=== PATIENT | female | born 1970 | race Caucasian/White ===

== ENCOUNTER 2016-06-02 09:12 | Emergency (ER) | payer OTHER ==
[2016-06-02 09:44] VITALS: BP 139/74
--- NOTE | 2016-06-02 09:55 | UC ---
Cardiac HPI - HPI Summary HPI Summary: Patient has MS, is followed by the [facility]. 2 days ago she started feeling left sided pain, thought it was a tylical MS romero, but has not resolved with typical baclofen, now has pain and tingling down left arm. Denies any palpitations or SOB. sitting comfortably in chair. - History of Current Complaint Chief Complaint: UCGeneralIllness Stated Complaint: MS ROMERO Time Seen by Provider: 06/02/16 09:39 Hx Obtained From: Patient Onset/Duration: Sudden Onset, Lasting Days Timing: Constant Initial Severity: Moderate Current Severity: Severe Chest Pain Location: Left Anterior, Left Lateral Character: Tightness, Pressure/Squeezing Aggravating: Position Alleviating: Nothing Associated Signs & Symptoms: Positive: Chest Pain, Numbness, Tingling, Weakness - Risk Factors Pulmonary Embolism Risk Factors: Negative Cardiac Risk Factors: Negative Atrial Fibrillation: Negative TAD Risk Factors: Negative - Allergy/Home Medications Allergies/Adverse Reactions: Allergies Allergy/AdvReac Type Severity Reaction Status Date / Time Oxycodone [From Percocet] Allergy Hives Verified 06/02/16 09:33 Home Medications: Home Medications predniSONE TAB* [Deltasone TAB*] 20 mg PO DAILY 06/02/16 [History Confirmed ] PMH/Surg Hx/FS Hx/Imm Hx Previously Healthy: Yes Endocrine History Of: Denies: Diabetes Cardiovascular History Of: Reports: Cardiac Disorders - palpitations Denies: Hypertension, Pacemaker/ICD Respiratory History Of: Denies: Asthma GI/ History Of: Denies: Renal Disease - Surgical History Surgical History: Yes Surgery Procedure, Year, and Place: , 1989, [facility] - Family History Known Family History: Positive: Hypertension - Social History Alcohol Use: None Substance Use Type: None Smoking Status (MU): Never Smoked Tobacco - Immunization History Most Recent Influenza Vaccination: 2013 Most Recent Tetanus Shot: 2011 Most Recent Pneumonia Vaccination: never Review of Systems Constitutional: Negative Skin: Negative Eyes: Negative ENT: Negative Respiratory: Negative Cardiovascular: Chest Pain - left ant. Gastrointestinal: Negative Genitourinary: Negative Motor: Negative Neurovascular: Negative Musculoskeletal: Arthralgia, Myalgia Neurological: Negative Psychological: Negative All Other Systems Reviewed And Are Negative: Yes Physical Exam Triage Information Reviewed: Yes Appearance: Well-Appearing, Pain Distress, Obese Vital Signs: Initial Vital Signs Temp 97.5 F 06/02/16 09:24 Pulse 100 06/02/16 09:24 Resp 16 06/02/16 09:24 BP 139/74 06/02/16 09:24 Pulse Ox 98 06/02/16 09:24 Vital Signs Reviewed: Yes Eye Exam: Normal Eyes: Positive: Conjunctiva Clear ENT Exam: Normal ENT: Positive: Hearing grossly normal, Pharynx normal, TMs normal Dental Exam: Normal Neck exam: Normal Neck: Positive: Supple, Nontender, No Lymphadenopathy Respiratory Exam: Normal Respiratory: Positive: Chest non-tender, Lungs clear, Normal breath sounds Cardiovascular Exam: Normal Cardiovascular: Positive: RRR, No Murmur, Pulses Normal Abdominal Exam: Normal Abdomen Description: Positive: Nontender, No Organomegaly, Soft Bowel Sounds: Positive: Present Musculoskeletal Exam: Normal Musculoskeletal: Positive: Strength Intact, ROM Intact, No Edema, Other: - hypertonicity of left maycol back and shoulder musculature noted Neurological: Positive: Alert Psychological Exam: Normal Skin Exam: Normal - Assessment/Plan Course Of Treatment: History obtained, exam performed, meds reviewed. EKG obtained no change from the last EKG, reviewed by Dr Steven. patient relieved will continue with normal treatment for MS Hug and follow up with her MD at [facility]. - Differential Diagnoses - Chest Pain Differential Diagnosis/HQI/PQRI: Acute KS, ACS, Angina, Chest Wall - Differential Diagnoses - Hypertension Differential Diagnosis/HQI PQRI: Other - MS exacerbation MS HUG - Clinical Impression Provider Diagnoses: Multiple Sclerosis. muscle spasm Discharge - Discharge Plan Condition: Stable Disposition: HOME Patient Education Materials: Chest Pain (ED) Forms: *Work Release Additional Instructions: Take the baclofen as prescribed. Follow up with your [id number] if your symptoms persist or not well controlled with current treatment. Your EKG was normal and unchanged from your last EKG.
== END 2016-06-02 10:21 | disposition home or self-care (01) ==
LOC: UCCORT 09:12
DX: G35 Multiple sclerosis (principal); M62.838 Other muscle spasm; R20.2 Paresthesia of skin; R07.89 Other chest pain; Z88.5 Allergy status to narcotic agent
CPT/HCPCS: 93005; 99211; G0463

== ENCOUNTER 2016-11-10 11:37 | Emergency (ER) | payer OTHER ==
[2016-11-10 11:56] VITALS: BP 129/79
--- NOTE | 2016-11-10 12:19 | UC ---
Skin Complaint HPI - HPI Summary HPI Summary: right side pain x 2 day ? shingles, Hx of shingles x 2 in the past, no rash noted yet, no fever, no chills, - History of Current Complaint Chief Complaint: UCSkin Time Seen by Provider: 11/10/16 11:38 Stated Complaint: SKIN COMPLAINT Hx Obtained From: Patient Hx Last Menstrual Period: 10/31/16 ?: No Onset/Duration: Gradual Onset, Lasting Days - 2, Still Present Timing: Constant Onset Severity: Moderate Current Severity: Moderate Pain Intensity: 5 Pain Scale Used: 0-10 Numeric Location: Other - right side of her trunk Character: Pain, Painful Aggravating: Clothing, Touch Alleviating: Nothing Associated Signs & Symptoms: Positive: Tenderness Similar Episode/Dx as: shingles x 2 - Allergy/Home Medications Allergies/Adverse Reactions: Allergies Allergy/AdvReac Type Severity Reaction Status Date / Time Oxycodone [From Percocet] Allergy Hives Verified 11/10/16 11:48 Home Medications: Home Medications Baclofen TAB* [Lioresal TAB*] 10 mg PO TID PRN 11/10/16 [History Confirmed 11/10] Review of Systems Constitutional: Negative Skin: Negative Eyes: Negative ENT: Negative Respiratory: Negative Cardiovascular: Negative Psychological: Negative All Other Systems Reviewed And Are Negative: Yes PMH/Surg Hx/FS Hx/Imm Hx Previously Healthy: Yes Neurological History: Other - MS Other Neurological History: MS - Surgical History Surgical History: Yes Surgery Procedure, Year, and Place: , 1989, [facility] - Family History Known Family History: Positive: Hypertension - Social History Alcohol Use: None Substance Use Type: Prescribed Smoking Status (MU): Never Smoked Tobacco - Immunization History Most Recent Influenza Vaccination: 2012 Most Recent Tetanus Shot: 2011 Most Recent Pneumonia Vaccination: never Physical Exam Triage Information Reviewed: Yes Appearance: Well-Appearing, No Pain Distress, Well-Nourished Vital Signs: Initial Vital Signs Temp 98.5 F 11/10/16 11:50 Pulse 76 11/10/16 11:50 Resp 16 11/10/16 11:50 BP 129/79 11/10/16 11:50 Pulse Ox 100 11/10/16 11:50 Eye Exam: Normal Eyes: Positive: Conjunctiva Clear ENT: Positive: Normal ENT inspection, Hearing grossly normal, Pharynx normal Neck exam: Normal Neck: Positive: Supple, Nontender, No Lymphadenopathy Respiratory: Positive: Chest non-tender, Lungs clear, Normal breath sounds Cardiovascular: Positive: RRR, No Murmur, Pulses Normal Skin: Positive: Other - no rash seen. Negative: rashes Course/Dx - Diagnoses Provider Diagnoses: shingles Discharge - Discharge Plan Condition: Stable Disposition: HOME Prescriptions: ValACYclovir (*) [Valtrex 1 GM(*)] 1 gm PO TID #21 tab Patient Education Materials: Shingles (ED) Forms: *Work Release Referrals: Anjelica Real PA [Primary Care Provider] - 7 Days
== END 2016-11-10 12:06 | disposition home or self-care (01) ==
LOC: UCCORT 11:37
DX: B02.9 Zoster without complications (principal)
CPT/HCPCS: 99212; G0463

== ENCOUNTER 2017-04-29 07:19 | Emergency (ER) | payer OTHER ==
[2017-04-29 08:00] VITALS: BP 122/73
[2017-04-29] MEDS ORDERED: Acetaminophen TAB* 325 MG PO ONE (08:32)
--- NOTE | 2017-04-29 08:50 | UC ---
Throat Pain/Nasal John Paul HPI - HPI Summary HPI Summary: 46 year old female wih history of MS presents with sore throat for 1 day and concern for strep/ no fever. - History of Current Complaint Chief Complaint: UCRespiratory Stated Complaint: SORE THROAT Time Seen by Provider: 04/29/17 08:00 Hx Last Menstrual Period: 04/16 Pain Intensity: 7 - Allergies/Home Medications Allergies/Adverse Reactions: Allergies Allergy/AdvReac Type Severity Reaction Status Date / Time acetaminophen [From Percocet] Allergy Hives Verified 04/29/17 07:50 oxycodone [From Percocet] Allergy Hives Verified 04/29/17 07:50 Home Medications: Home Medications Duloxetine HCl 60 mg PO DAILY 04/29/17 [History Confirmed 04/29/17] Ibuprofen TAB* [Motrin TAB* 400 MG] 400 mg PO ONCE PRN 04/29/17 [History Confirmed 04/29/17] PMH/Surg Hx/FS Hx/Imm Hx Previously Healthy: Yes - MS - Surgical History Surgical History: Yes Surgery Procedure, Year, and Place: , 1989, [facility] - Family History Known Family History: Positive: Hypertension - Social History Occupation: Employed Full-time - [employer] Alcohol Use: None Substance Use Type: Prescribed Smoking Status (MU): Never Smoked Tobacco - Immunization History Most Recent Influenza Vaccination: 2012 Most Recent Tetanus Shot: 2011 Most Recent Pneumonia Vaccination: never Review of Systems ENT: Sore Throat Is Patient Immunocompromised?: No All Other Systems Reviewed And Are Negative: Yes Physical Exam Triage Information Reviewed: Yes Appearance: Well-Appearing, No Pain Distress, Well-Nourished Vital Signs: Initial Vital Signs Temp 98.1 F 04/29/17 07:54 Pulse 84 04/29/17 07:54 Resp 18 04/29/17 07:54 BP 122/73 04/29/17 07:54 Pulse Ox 98 04/29/17 07:54 Vital Signs Reviewed: Yes Eye Exam: Normal ENT Exam: Normal ENT: Positive: Pharyngeal erythema. Negative: Tonsillar swelling, Tonsillar exudate Dental Exam: Normal Neck exam: Normal Neck: Positive: 1 Respiratory Exam: Normal Cardiovascular Exam: Normal Musculoskeletal Exam: Normal Neurological Exam: Normal Psychological Exam: Normal Skin Exam: Normal Throat Pain/Nasal Course/Dx - Differential Dx/Diagnosis Differential Diagnosis/HQI/PQRI: Mononucleosis, Pharyngitis, Tonsillitis Provider Diagnoses: viral pharyngitis Discharge - Discharge Plan Condition: Good Disposition: HOME Prescriptions: Magic Mouth Was-ROS/MAAL/LIDO* 5 ml SWISH SPIT QID PRN #120 ml PRN Reason: Pain Patient Education Materials: Pharyngitis (ED) Forms: *Work Release Referrals: Anjelica Real PA [Primary Care Provider] - 4 Days Additional Instructions: You had a negative strep test today
== END 2017-04-29 09:14 | disposition home or self-care (01) ==
LOC: UCCORT 07:19
DX: J02.9 Acute pharyngitis, unspecified (principal)
CPT/HCPCS: 87651; 99212; A9270-GY; G0463

== ENCOUNTER 2017-05-02 11:04 | Emergency (ER) | payer OTHER ==
[2017-05-02 13:17] VITALS: BP 109/64
--- NOTE | 2017-05-02 13:49 | UC ---
Throat Pain/Nasal John Paul HPI - HPI Summary HPI Summary: history of MS, on Tecfidera (she does not know her white count), with 4 days of progressive sore throat, now with headache and left facial pain. + cough, no chills or rigors. - History of Current Complaint Chief Complaint: UCRespiratory Stated Complaint: RE-CHECK ST/EAR/SINUS Time Seen by Provider: 05/02/17 13:37 Hx Obtained From: Patient Hx Last Menstrual Period: 04/16 Onset/Duration: Gradual Onset, Lasting Days - 5 Pain Intensity: 6 Cough: Nonproductive Associated Signs & Symptoms: Positive: Sinus Discomfort, Nasal Discharge - Allergies/Home Medications Allergies/Adverse Reactions: Allergies Allergy/AdvReac Type Severity Reaction Status Date / Time acetaminophen [From Percocet] Allergy Hives Verified 05/02/17 13:08 oxycodone [From Percocet] Allergy Hives Verified 05/02/17 13:08 PMH/Surg Hx/FS Hx/Imm Hx - Additional Past Medical History Additional PMH: Multiple sclerosus, on Tecfidera. Uses Lyrica for chronic leg pain. Neurological History: Other - Multiple sclerosus Other Neurological History: multiple sclerosus - Surgical History Surgical History: Yes Surgery Procedure, Year, and Place: , 1989, [facility] - Family History Known Family History: Positive: Other - longevity in family. Grandparents living , all well. - Social History Occupation: Employed Full-time Lives: With Family Alcohol Use: None Substance Use Type: Prescribed Smoking Status (MU): Never Smoked Tobacco - Immunization History Most Recent Influenza Vaccination: 2012 Most Recent Tetanus Shot: 2011 Most Recent Pneumonia Vaccination: never Review of Systems Constitutional: Fever, Fatigue Skin: Negative Eyes: Negative ENT: Sore Throat, Ear Ache - left Respiratory: Cough Cardiovascular: Negative Gastrointestinal: Negative Genitourinary: Negative Motor: Negative Neurovascular: Negative Musculoskeletal: Myalgia - chronic, related to MS Neurological: Headache Psychological: Negative Is Patient Immunocompromised?: Yes - on Tecfidera, uncertain of WBC All Other Systems Reviewed And Are Negative: Yes Physical Exam Triage Information Reviewed: Yes Appearance: Ill-Appearing - looks mildly unwell., Obese Vital Signs: Initial Vital Signs Temp 98.3 F 05/02/17 13:11 Pulse 84 05/02/17 13:11 Resp 18 02/25/18 13:11 BP 109/64 05/02/17 13:11 Pulse Ox 96 05/02/17 13:11 Eyes: Positive: Conjunctiva Clear ENT: Positive: Pharyngeal erythema - posterior drainage and erythema, Other - + percussive tenderness right maxillary and frontal sinus Neck: Positive: Supple, Nontender, No Lymphadenopathy Respiratory: Positive: Lungs clear, Normal breath sounds Cardiovascular: Positive: RRR, No Murmur Skin Exam: Normal Throat Pain/Nasal Course/Dx - Course Course Of Treatment: augmentin for sinusitis. - Differential Dx/Diagnosis Differential Diagnosis/HQI/PQRI: Influenza, Laryngitis, Otitis Media, Tonsillitis Provider Diagnoses: acute left maxillary and frontal sinusitis. Discharge - Discharge Plan Condition: Stable Disposition: HOME Prescriptions: Amoxicillin/Clavulanate TAB* [Augmentin TAB 875*] 875 mg PO BID #20 tab Patient Education Materials: Sinusitis (ED) Referrals: Anjelica Real PA [Primary Care Provider] - Additional Instructions: Take augmentin for sinusitis. You can use flonase spray for relief of sinus congestion. Folow up if fever persists or your develop shortness of breath.
== END 2017-05-02 14:07 | disposition home or self-care (01) ==
LOC: UCCORT 11:04
DX: J01.10 Acute frontal sinusitis, unspecified (principal); J01.00 Acute maxillary sinusitis, unspecified; G35 Multiple sclerosis
CPT/HCPCS: 99212; G0463

== ENCOUNTER 2017-05-30 08:53 | Emergency (ER) | payer OTHER ==
[2017-05-30 09:25] VITALS: BP 108/70
--- NOTE | 2017-05-30 10:05 | UC ---
Ear Complaint HPI - HPI Summary HPI Summary: right ear pain x hours no URI - History of Current Complaint Chief Complaint: UCEar Stated Complaint: EAR PAIN Time Seen by Provider: 05/30/17 09:38 Hx Obtained From: Patient Hx Last Menstrual Period: 04/16/17 Onset/Duration: Gradual Onset, Lasting Hours Severity Initially: Moderate Severity Currently: Mild Pain Intensity: 3 Pain Scale Used: 0-10 Numeric Associated Signs/Symptoms: Positive: Hearing Loss Related History: Prior ENT Surgery, T & A - Allergies/Home Medications Allergies/Adverse Reactions: Allergies Allergy/AdvReac Type Severity Reaction Status Date / Time acetaminophen [From Percocet] Allergy Hives Verified 05/02/17 13:08 oxycodone [From Percocet] Allergy Hives Verified 05/02/17 13:08 PMH/Surg Hx/FS Hx/Imm Hx Previously Healthy: Yes - Surgical History Surgical History: Yes Surgery Procedure, Year, and Place: , 1989, [facility] - Family History Known Family History: Positive: Hypertension, Other - longevity in family. Grandparents living, all well. - Social History Alcohol Use: None Substance Use Type: None Smoking Status (MU): Never Smoked Tobacco - Immunization History Most Recent Influenza Vaccination: 2012 Most Recent Tetanus Shot: 2011 Most Recent Pneumonia Vaccination: never Review of Systems Constitutional: Negative Skin: Negative Eyes: Negative ENT: Ear Ache Respiratory: Negative Cardiovascular: Negative Gastrointestinal: Negative Genitourinary: Negative Motor: Negative Neurovascular: Negative Musculoskeletal: Negative Neurological: Negative Psychological: Negative Is Patient Immunocompromised?: No All Other Systems Reviewed And Are Negative: Yes Physical Exam Triage Information Reviewed: Yes Vital Signs: Initial Vital Signs Temp 98.4 F 05/30/17 09:18 Pulse 86 05/30/17 09:18 Resp 16 05/30/17 09:18 BP 108/70 05/30/17 09:18 Pulse Ox 98 05/30/17 09:18 Eye Exam: Normal ENT: Positive: Uvula midline. Negative: Hearing grossly normal, TMs normal - unable to vis right TM due to cerumen, Tonsillar swelling, Tonsillar exudate, Hoarse voice, Dental tenderness, Sinus tenderness Neck: Positive: Supple, Nontender, No Lymphadenopathy Respiratory: Positive: Lungs clear, Normal breath sounds, No respiratory distress Cardiovascular: Positive: RRR, No Murmur Neurological: Positive: Alert Psychological Exam: Normal Skin Exam: Normal Re-Evaluation - Re-Evaluation First Eval Re-Evaluation Time: 10:03 Change: Improved - right TM normal Ear Complaint Course/Dx - Differential Dx/Diagnosis Provider Diagnoses: right cerumen impaction Discharge - Sign-Out/Discharge Documenting (check all that apply): Discharge - Discharge Plan Condition: Stable Disposition: HOME Patient Education Materials: Cerumen Impaction (ED) Referrals: Anjelica Real PA [Primary Care Provider] - If Needed - Billing Disposition and Condition Condition: STABLE Disposition: HOME
== END 2017-05-30 10:12 | disposition home or self-care (01) ==
LOC: UCCORT 08:53
DX: H61.21 Impacted cerumen, right ear (principal); Z88.6 Allergy status to analgesic agent; Z88.5 Allergy status to narcotic agent
CPT/HCPCS: 99211; G0463

== ENCOUNTER 2018-04-02 10:11 | Emergency (ER) | payer OTHER ==
--- OUTSIDE RECORDS SUMMARY | 2018-04-02 10:28 | XMS REPORT | Continuity of Care Document ---
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 [employer] Unavailable Anjelica Real RPAC Primary Care Physician Unavailable Payers Type Date Identification Numbers Payment Provider Subscriber Policy Number: [id number] Lifetime Benefit Solution Maicol Valentine PayID: [facility] [address] [address] [place] [address] Advance Directives Description No Information Available Problems Date Description Provider Status Onset: 12/08/2013 Mitral valve regurgitation Anjelica Real RPAC Active Onset: 07/17/2013 Cervical arthritis Anjelica Real RPAC Active Onset: 03/09/2013 Vitamin D deficiency Anjelica Real RPAC Active Onset: 12/06/2012 Hyperlipidemia Kristel Clark FNP Active Onset: 08/11/2012 Obesity Anjelica Real RPAC Active Onset: 09/14/2011 Insomnia Alejandra Mejia NP Active Onset: 09/14/2011 Excessive and frequent Alejandra Mejia NP Active menstruation Onset: 09/14/2011 Multiple sclerosis Alejandra Mejia NP Active Onset: 03/24/2018 Family history of cancer of Anjelica Real RPAC Active colon Onset: 05/04/2017 Acute maxillary sinusitis Mello Allison M.D. Resolved Resolved: 12/14/2017 Onset: 05/31/2017 Acute pharyngitis Anais Minaya MD Resolved Resolved: 12/14/2017 Onset: 05/31/2017 Otalgia Anais Minaya MD Resolved Resolved: 12/14/2017 Onset: 07/12/2017 Urinary tract infectious disease Anjelica RealVELIAMarlyn Resolved Resolved: 12/14/2017 Onset: 12/14/2017 Pain in right lower limb Mello Allison M.D. 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 @ [employer] Tobacco Use Start: Unknown Never Smoked Cigarettes Smoking Status Reviewed: 03/24/18 Never Smoked Cigarettes ETOH Use Occasionally consumes alcohol Recreational Drug Use Denies Drug Use Tattoo/Piercing Pierced Nasal Area Currently Active Patient is currently sexually active Age 1st [place] 16 Years Old # Partners in a Lifetime 3 STD's Chlamydia Allergies, Adverse Reactions, Alerts Date Description Reaction Status Severity Comments 10/23/2010 Percocet Active hives and vomiting Medications Medication Date Status Form Strength Qnty SIG Indications Ordering Provider Vitamin D3 03/24 Active Tablets 2000Unit 2 tabs Mistry, Super Strength daily...subs Thierry, tituted for M.D. D2 03/2018 Nortriptyline 02/05 Active Capsules 10mg 1 capsule Unknown by mouth before bedtime per Dr Neil Lyrica 07/28 Active Capsules 150mg 1 cap by Unknown mouth three times a day, per Dr Neil Ondansetron 10/10 Active Tablets 8mg 270ta dissolve 1 Mistry Dispers bs tablet in Thierry, mouth every M.D. 8 hours as needed Vitamin D 00 Active Capsules 84547Honh 1 cap by Unknown (Ergocalciferol /0000 mouth twice ) a week per Dr Eisenberg...on hold 03/2018 Cymbalta Active Caps 30mg 3 caps by Unknown /0000 Part mouth every night per Dr Jolynn ODONNELL Active Tablets ER 12.5mg 30tab 1 tab by Mistry, / s mouth as Thierry, needed M.D. insomnia ::: Cefdinir 02/17 Hx Capsules 300mg 20cap 2 caps by Mistry, s mouth every Thierry, - day M.D. 02/28 Prednisone 02/16 Hx Tablets 20mg 10tab 2 tabs (40 Gagen, s mg) daily Michelle - for 5 days e, MS, 02/22 [employer], CNM Penicillin V 02/08 Hx Tablets 500mg 30tab 1 tab by Mistry, s mouth three Thierry, - times a day M.D. 02/17 Bactrim DS 07/12 Hx Tablets 800-160mg 14tab 1 tab by N39.0 Mistry, s mouth twice Thierry, - a day M.D. 07/20 Pyridium 07/12 Hx Tablets 200mg 15tab 1 tab by N39.0 Mistry, s mouth three Thierry, - times a day M.D. 12/14 as needed for dysuria Azithromycin 06/01 Hx Tablets 500mg 10tab 2 tabs by Mistry, s mouth every Thierry, - day with M.D. 07/12 Amoxicillin 05/31 Hx Capsules 500mg 20cap 1 tab by Rei, s mouth twice MD Anais - a day x 10 Ciprodex 05/31 Hx Suspension 0.3-0.1% 1bott 4 drops in Rei, le affected ear MD Anais - twice a day 07/12 x 10 Fluticasone 03/22 Hx Suspension 50mcg/Act 16gm 2 sprays Mistry, intranasal Thierry, - every day M.D. 03/27 Tecfidera 03/[address] 120mg one po qd---from - neurologist 07/12 Lyrica 12/02 Hx Capsules 75mg 180ca one cap by Fede, ps mouth twice Thierry, - a day ... M.DMary 07/12 Code C. MDD 2...:::... Reference #: [id number] Belviq 05/27 Hx Tablets 10mg 60tab 1 by mouth E66.9 Fede, s twice a day Magi Guadarrama Cephalexin 02/25 Hx Tablets 500mg 30tab 1 tab (or J06.9 William, s cap) by Kameron Gomez - mouth three DO 09/23 times a day /2015 Cymbalta 10/[address] 60mg 90cap take one Fede, Part s capsule by Thierry - mouth every M.D. Nortriptyline 12/07 Hx Capsules 25mg 60cap take 1-2 Spencer s capsules by Chayito - sneha sparks MD 02/15 bedtime needed for insomnia Simvastatin 09/25 Hx Tablets 20mg 90tab 1 tab by Spencer, s mouth every Chayito sanchez MD 09/23 Tecfidera 08/[address] 120mg one po Spencer, qd---from Chayito - neurologist MD 05/27 Nasonex 08/11 Hx Suspension 50mcg/Act 51gm 2 sprays William each nostril Kameron Gomez, - every day DO 07/12 Loestrin Fe 11/13 Hx Tablets 1.5-30mg- 1Pack 1 po qd 626.2 [place], .08/04 Tana Morris M.D. 11/13 Junel Fe 1.08/04 11/13 Hx Tablets 1.5-30mg- 1pack 1 po qd 626.2 [place] Tana Morris M.D. 02/15 Xanax 10/30 Hx Tablets 0.25mg 10tab 1 tab po bid [place] s prn For Miguel - Anxiety M.DMary 02/15 Lexapro Hx Tablets 10mg 30tab 1 po qd Unknown /0000 s - 02/15 Lyrica Hx Capsules 75mg 180ca one cap by William, /0000 ps mouth twice Kameron Gomez, - a day ... DO 05/27 Code C. /2016 Baclofen Hx Tablets 10mg 270ta take 1 Mistry, /0000 bs tablet 3 Thierry, - times a day M.D. 03/27 as needed /2018 for muscle spasm. Duloxetine HCL Hx Caps DR 60mg 90cap take 1 Palmer, /0000 Part s capsule by Chayito - mouth once MD 10/03 /2014 Tegretol-XR Hx Tablets ER 200mg 540ta take 3 Mistry, /0000 12HR bs tablets 2 Thierry, - times a day. M.D. 03/27 Vitamin D3 Hx Capsules 5000Unit 24cap 1 by mouth Mistry, Ultra Strength /0000 s twice a week Tana Guadarrama M.DMary 12/29 Immunizations CPT Code Status Date Vaccine Lot # [id number] Given 12/14/2017 Influenza Virus Vaccine, Quadrivalent, 36 Mos+, [id number] Given 12/22/2016 Influenza Virus Vaccine Quadrivalent Iiv4 Split [id number] Preser Free Id [id number] Given 02/15/2015 Influenza Vaccine (Fluzone) Age 3 And Older [id number] 70699 Given 12/13/2013 flu vaccination 06599 Given 12/06/2012 flu vaccination Vital Signs Date Vital Result Comment 03/24/2018 12:59pm BP Systolic Sitting Left Arm 132 mmHg BP Diastolic Sitting Left Arm 86 mmHg Body Temperature 98.1 F Heart Rate 90 /min Respiratory Rate 18 /min Height 64 inches 5'4" Weight 242.00 lb BMI (Body Mass Index) 41.5 kg/m2 BSA (Body Surface Area) 2.12 m2 Gove body weight in kilograms 54 kg O2 % BldC Oximetry 96 % Ra 02/22/2018 3:37pm BP Systolic Sitting Right Arm 122 mmHg BP Diastolic Sitting Right Arm 70 mmHg Body Temperature 98.7 F Heart Rate 79 /min Height 64 inches 5'4" Weight 242.00 lb BMI (Body Mass Index) 41.5 kg/m2 BSA (Body Surface Area) 2.12 m2 [place]ove body weight in kilograms 54 kg O2 % BldC Oximetry 98 % ra 02/15/2018 3:39pm BP Systolic Sitting Left Arm 121 mmHg BP Diastolic Sitting Left Arm 76 mmHg Body Temperature 97.8 F Heart Rate 82 /min Respiratory Rate 18 /min Height 64 inches 5'4" Weight 238.00 lb BMI (Body Mass Index) 40.8 kg/m2 BSA (Body Surface Area) 2.11 m2 [place]ove body weight in kilograms 54 kg O2 % BldC Oximetry 96 % Ra 12/14/2017 1:06pm BP Systolic 116 mmHg BP Diastolic 76 mmHg Body Temperature 97.1 F Heart Rate 86 /min Weight 270.00 lb O2 % BldC Oximetry 98 % Ra Pain Level 6 right lower leg muscle 07/12/2017 9:05am BP Systolic Sitting Right Arm 124 mmHg BP Diastolic Sitting Right Arm 77 mmHg Body Temperature 97.9 F Heart Rate 88 /min Respiratory Rate 16 /min Height 64 inches 5'4" Weight 234.00 lb BMI (Body Mass Index) 40.2 kg/m2 BSA (Body Surface Area) 2.09 m2 Gove body weight in kilograms 54 kg O2 % BldC Oximetry 97 % Ra 05/31/2017 9:55am BP Systolic Sitting Left Arm 112 mmHg BP Diastolic Sitting Left Arm 80 mmHg Body Temperature 98.3 F Heart Rate 94 /min Height 64 inches 5'4" Weight 237.00 lb BMI (Body Mass Index) 40.7 kg/m2 BSA (Body Surface Area) 2.10 m2 Gove body weight in kilograms 54 kg 05/04/2017 9:49am BP Systolic Sitting Right Arm 110 mmHg BP Diastolic Sitting Right Arm 62 mmHg Body Temperature 98.7 F Heart Rate 79 /min Height 64 inches 5'4" Weight 245.00 lb BMI (Body Mass Index) 42.0 kg/m2 BSA (Body Surface Area) 2.13 m2 [place]ove body weight in kilograms 54 kg O2 % BldC Oximetry 97 % 12/28/2016 1:34pm BP Systolic Sitting Right Arm 120 mmHg BP Diastolic Sitting Right Arm 72 mmHg Heart Rate 84 /min Respiratory Rate 18 /min Height 64 inches 5'4" Weight 250.00 lb BMI (Body Mass Index) 42.9 kg/m2 BSA (Body Surface Area) 2.15 m2 Gove body weight in kilograms 54 kg O2 % BldC Oximetry 96 % ra 05/27/2016 11:04am BP Systolic Sitting Right Arm 112 mmHg BP Diastolic Sitting Right Arm 72 mmHg Height 64 inches 5'4" Weight 257.50 lb BMI (Body Mass Index) 44.2 kg/m2 BSA (Body Surface Area) 2.18 m2 09/24/2015 2:34pm BP Systolic 128 mmHg BP Diastolic 70 mmHg Height 64 inches 5'4" Weight 236.00 lb BMI (Body Mass Index) 40.5 kg/m2 BSA (Body Surface Area) 2.10 m2 02/25/2015 1:51pm BP Systolic Sitting Left Arm 142 mmHg BP Diastolic Sitting Left Arm 82 mmHg Body Temperature 98.6 F Heart Rate 88 /min Height 64 inches 5'4" Weight 260.00 lb BMI (Body Mass Index) 44.6 kg/m2 BSA (Body Surface Area) 2.19 m2 O2 % BldC Oximetry 97 % 02/15/2015 9:07am BP Systolic Sitting Left Arm 134 mmHg BP Diastolic Sitting Left Arm 74 mmHg Heart Rate 90 /min Height 64 inches 5'4" Weight 254.25 lb BMI (Body Mass Index) 43.6 kg/m2 BSA (Body Surface Area) 2.17 m2 O2 % BldC Oximetry 97 % 12/07/2013 1:10pm BP Systolic 116 mmHg BP Diastolic 62 mmHg Height 63 inches 5'3" Weight 252.00 lb 09/25/2013 1:07pm BP Systolic 110 mmHg BP Diastolic 70 mmHg Height 63 inches 5'3" Weight 253.00 lb BSA (Body Surface Area) 2.14 m2 03/22/2013 9:57am BP Systolic 130 mmHg BP Diastolic 72 mmHg Body Temperature 98.9 F Height 63 inches 5'3" Weight 250.00 lb 03/09/2013 2:22pm BP Systolic 122 mmHg BP Diastolic 68 mmHg Height 63 inches 5'3" Weight 250.00 lb 01/20/2013 10:45am BP Systolic 102 mmHg BP Diastolic 58 mmHg Body Temperature 98.7 F Height 63 inches 5'3" Weight 245.00 lb 12/06/2012 1:14pm BP Systolic 122 mmHg BP Diastolic 72 mmHg Heart Rate 80 /min Respiratory Rate 18 /min Height 63 inches 5'3" Weight 246.00 lb 08/11/2012 10:08am BP Systolic 122 mmHg BP Diastolic 78 mmHg Body Temperature 98.5 F Height 64 inches 5'4" Weight 246.00 lb 05/09/2012 3:25pm BP Systolic 114 mmHg BP Diastolic 64 mmHg Height 64 inches 5'4" Weight 246.00 lb 02/25/2012 11:50am BP Systolic 118 mmHg BP Diastolic 70 mmHg Height 63 inches 5'3" Weight 250.00 lb 12/10/2011 1:11pm BP Systolic 122 mmHg BP Diastolic 76 mmHg Height 63 inches 5'3" Weight 239.00 lb 11/04/2011 11:50am BP Systolic 118 mmHg BP Diastolic 72 mmHg Body Temperature 98.7 F Height 63 inches 5'3" Weight 240.00 lb 09/14/2011 2:38pm BP Systolic 118 mmHg BP Diastolic 76 mmHg Body Temperature 99.3 F Heart Rate 96 /min Respiratory Rate 18 /min Height 64 inches 5'4" Weight 241.00 lb 10/23/2010 2:49pm BP Systolic Sitting Left Arm 161 mmHg BP Diastolic Sitting Left Arm 96 mmHg Heart Rate 83 /min Respiratory Rate 14 /min Height 63.5 inches 5'3.50"approx Weight 244.00 lb BMI (Body Mass Index) 42.5 kg/m2 Last Menstrual Period [id number] Results Test Date Facility Test Result H/L Range Note Comp Metabolic 03/03/2018 [facility] Sodium 139 mmol/ L N 135-145 Panel [phone] Potassium 4.2 mmol/L N 3.5-5.0 Chloride 107 mmol/L N 101-111 Co2 Carbon Dioxide 28 mmol/L N 22-32 Anion Gap 4 mmol/L N 2-11 Glucose 99 mg/dL N 70-100 Blood Urea Nitrogen 10 mg/dL N 6-24 Creatinine 0.67 mg/dL N 0.51-0.95 BUN/Creatinine Ratio 14.9 N 8-20 Calcium 8.5 mg/dL Low 8.6-10.3 Total Protein 5.6 g/dL Low 6.4-8.9 Albumin 3.6 g/dL N 3.2-5.2 Globulin 2.0 g/dL N 2-4 Albumin/Globulin Ratio 1.8 N 1-3 Total Bilirubin 0.30 mg/dL N 0.2-1.0 Alkaline Phosphatase 74 U/L N 34-104 Alt 10 U/L N 7-52 Ast 12 U/L Low 13-39 Egfr Non- 93.6 >60 Egfr 113.2 >60 1 Laboratory test 03/03/2018 [facility] TSH (Thyroid 3.67 mcIU/mL N 0.34-5.60 finding [phone] Stim Horm) Vitamin D Total 25(Oh) 21.9 ng/mL N 20-50 LDL Cholesterol 03/03/2018 [facility] Triglycerides 102 mg/dL 2 Profile [phone] Cholesterol 239 mg/dL 3 HDL Cholesterol 90.7 mg/dL 4 LDL Cholesterol 128 mg/dL 5 CBC W/Automated 03/03/2018 [facility] White Blood 7.0 10^3/uL N 3.5-10.8 Diff [phone] Count Red Blood Count 3.99 10^6/uL Low 4.00-5.40 Hemoglobin 11.7 g/dL Low 12.0-16.0 Hematocrit 35 % N 35-47 Mean Corpuscular Volume 88 fL N 80-97 Mean Corpuscular Hemoglobin 29 pg N 27-31 Mean Corpuscular HGB Conc 33 g/dL N 31-36 Red Cell Distribution Width 14 % N 10.5-15 Platelet Count 266 10^3/uL N 150-450 Mean Platelet Volume 6.8 fL Low 7.4-10.4 Abs Neutrophils 4.0 10^3/uL N 1.5-7.7 Abs Lymphocytes 2.3 10^3/uL N 1.0-4.8 Abs Monocytes 0.6 10^3/uL N 0-0.8 Abs Eosinophils 0.1 10^3/uL N 0-0.6 Abs Basophils 0 10^3/uL N 0-0.2 Abs Nucleated RBC 0 10^3/uL Granulocyte % 57.4 % Lymphocyte % 32.9 % Monocyte % 7.9 % Eosinophil % 1.4 % Basophil % 0.4 % Nucleated Red Blood Cells % 0 Influenza A/B 02/15/2018 [facility] Influenza A Negative (Negative) [address] [place] [address] [phone] Influenza B Antigen Negative (Negative) 7 Throat Culture 02/15/2018 [facility] Throat Culture NORMAL THROAT FL [address] Complete <SEE NOTE> [place] [address] [phone] Urine Culture 07/12/2017 [facility] Urine Culture URETHRAL EMRE [address] [place] [address] [phone] Quantity 10,000 - 50,000 <SEE NOTE> 10 Throat 05/31/2017 [facility] Throat NORMAL 11, [address] [place] [address] Complete <SEE NOTE> [phone] Laboratory 04/29/2017 [facility] Rapid Strep Negative Negative 13 test finding [phone] Molecular Laboratory 12/22/2016 [facility] Vitamin 22.7 ng/mL Low 30.0-100.0 14, 15 test finding [address] D,25-[place] [address] [phone] Thyroid Stim Hormone 3.00 uIU/mL N 0.30-4.20 Comprehensive Metabolic 12/22/2016 [facility] Glucose 88 mg/dL N 74-[address] [place] [address] [phone] BUN 13 mg/dL N 7-18 Creatinine 0.6 mg/dL N 0.6-1.3 Glom Filtration Rate, Estimate >60 mL/min >60 If >60 mL/min >60 16 BUN/Creat 21.6 ratio Sodium 139 mmol/L N 136-145 Potassium 4.3 mmol/L N 3.5-5.1 Chloride 104 mmol/L N 98-107 Carbon Dioxide 31 mmol/L N 21-32 Anion Gap 4 mEq/L Low 8-16 Calcium 8.5 mg/dL N 8.5-10.1 Total Protein 6.7 g/dL N 6.4-8.2 Albumin 3.5 g/dL N 3.4-5.0 Globulin 3.2 g/dL N 1.9-4.3 Alb/Glob 1.1 ratio Bilirubin,Total 0.3 mg/dL N 0.2-1.0 Sgot/Ast 12 U/L Low 15-37 17 SGPT/Alt 16 U/L N 12-78 Alkaline Phosphatase 104 U/L N 45-117 CBS W/Automated Diff 12/22/2016 [facility] White Blood 6.9 K/uL N 3.1-10.[address] [place] [address] [phone] Red Blood Count 4.08 M/uL N 3.90-5.40 Hemoglobin 12.4 gm/dL N 11.6-15.8 Hematocrit 36.9 % N 36.0-46.1 Mean Cell Volume 90.4 fl N 80.9-99.0 Mean Corpuscular HGB 30.4 pg N 25.9-32.7 Mean Corpuscular HGB Conc 33.6 g/dL N 30.8-34.3 Platelet Count 266 K/uL N 150-400 Red Cell Distri Width SD 41.8 fl N 3-47 Red Cell Distri Width %CV 13.0 % N 11.7-14.4 Mean Platelet Volume 9.3 fL N 8.9-12.4 Neut% 53.2 % N 40.4-72.8 Lymph % 38.0 % N 20.0-42.0 [place] % 7.9 % N 4.3-13.2 Eo% 0.6 % N 0.0-6.6 Bas% 0.3 % N 0.0-1.1 Neut# 3.65 K/uL N 1.8-7.0 Lymph # 2.60 K/uL N 1.0-4.0 [place] # 0.54 K/uL N 0.3-0.9 Eos # 0.04 K/uL N 0.0-0.5 Baso # 0.02 K/uL N 0.0-0.1 Laboratory test 05/27/2016 [facility] Thyroid Stim 2.75 uIU/mL N 0.30-4.20 [address] [place] [address] [phone] Vitamin D,25-Hydroxy 44.1 ng/mL 30.0-100.0 19 Laboratory test 09/24/2015 [facility] Vitamin 16.1 Low 30.0-100.0 [address] D,25-Hydroxy ng/[place] [address] [phone] Comprehensive 09/24/2015 [facility] Glucose 95 mg/dL 74-106 Metabolic Panel [address] [place] [address] [phone] BUN 11 mg/dL 7-18 Creatinine 0.6 mg/dL 0.6-1.3 Glom Filtration Rate, Estimate >60 mL/min >60 If >60 mL/min >60 21 BUN/Creat 18.3 ratio Sodium 140 mmol/L 136-145 Potassium 3.5 mmol/L 3.5-5.1 Chloride 102 mmol/L 98-107 Carbon Dioxide 31 mmol/L 21-32 Anion Gap 7 mEq/L Low 8-16 Calcium 8.9 mg/dL 8.5-10.1 Total Protein 6.9 g/dL 6.4-8.2 Albumin 3.5 g/dL 3.4-5.0 Globulin 3.4 g/dL 1.9-4.3 Alb/Glob 1.0 ratio Bilirubin,Total 0.2 mg/dL 0.2-1.0 Sgot/Ast 12 U/L Low 15-37 22 SGPT/Alt 20 U/L 12-78 Alkaline Phosphatase 111 U/L 45-117 CBC W/Automated Diff 09/24/2015 [facility] White Blood 7.6 K/uL 3.1-10.[address] Count [place], [place] [address] [phone] Red Blood Count 4.30 M/uL 3.90-5.40 Hemoglobin 12.7 gm/dL 11.6-15.8 Hematocrit 38.7 % 36.0-46.1 Mean Cell Volume 90.0 fl 80.9-99.0 Mean Corpuscular HGB 29.5 pg 25.9-32.7 Mean Corpuscular HGB Conc 32.8 g/dL 30.8-34.3 Platelet Count 313 K/uL 155-360 Red Cell Distri Width SD 41.4 fl 3-47 Red Cell Distri Width %CV 12.9 % 11.7-14.4 Mean Platelet Volume 8.8 fL Low 8.9-12.4 Neut% 51.4 % 40.4-72.8 Lymph % 38.8 % 17.0-46.1 [place] % 8.6 % 4.3-13.2 Eo% 0.9 % 0.0-6.6 Bas% 0.3 % 0.0-1.1 Neut# 3.89 K/uL 1.8-7.0 Lymph # 2.94 K/uL 1.8-7.0 [place] # 0.65 K/uL 0.3-0.9 Eos # 0.07 K/uL 0.0-0.5 Baso # 0.02 K/uL 0.0-0.1 Laboratory test 09/24/2015 [facility] Carbamazepine 8.4 ug/mL 4.0-12.0 23 finding [address] [place] [address] [phone] Thyroid Stim Hormone 2.14 uIU/mL 0.30-4.20 Laboratory test 10/09/2014 [facility] Throat Beta Strep SEE RESULT 24 finding [phone] Culture BELOW LDL Cholesterol 06/06/2014 N2N/[facility] Import Cholesterol 196 mg/dL 25 Profile HDL Cholesterol 76.9 mg/dL 26 LDL Cholesterol 104 mg/dL 27 Triglycerides 78 mg/dL 28 Liver Function Tests 06/06/2014 N2N/[facility] Import Albumin 4.0 g/dL 3.2-5.2 Albumin/Globulin Ratio 1.8 1-3 Alkaline Phosphatase 82 U/L 34-104 Alt 10 U/L 7-52 Ast 12 U/L Low 13-39 Direct Bilirubin 0.00 mg/dL Low 0.03-0.18 Globulin 2.2 g/dL 2-4 Indirect Bilirubin (See Note) mg/dL 0.3-1.0 29 Total Bilirubin 0.20 mg/dL 0.2-1.0 Total Protein 6.2 g/dL Low 6.4-8.9 Vitamin D,25-Hydroxy 06/06/2014 N2N/[facility] Import 25-Hydroxy Vitamin D 38 ng/ mL 30 Total 25-Hydroxy Vitamin D2 30 ng/mL 25-Hydroxy Vitamin D3 7.5 ng/mL Laboratory test 03/21/2014 N2N/[facility] Import Urine Culture See Note 31 finding Inr/Protime 11/27/2013 N2N/[facility] Import Inr 0.92 0.85-1.06 Comp Metabolic Panel 11/27/2013 N2N/[facility] Import Albumin 4.0 g/dL 3.2-5.2 Albumin/Globulin Ratio 1.4 1-3 Alkaline Phosphatase 92 U/L 34-104 Alt 12 U/L 7-52 Anion Gap 6 mmol/L 2-11 Ast 13 U/L 13-39 BUN/Creatinine Ratio 16.0 8-20 Blood Urea Nitrogen 12 mg/dL 6-24 Calcium 9.0 mg/dL 8.6-10.3 Chloride 105 mmol/L 101-111 Co2 Carbon Dioxide 29 mmol/L 22-32 Creatinine 0.75 mg/dL 0.51-0.95 Egfr 107.5 >60 32 Egfr Non- 83.6 >60 Globulin 2.9 g/dL 2-4 Glucose 96 mg/dL 70-100 Potassium 4.0 mmol/L 3.7-5.6 Sodium 140 mmol/L 133-145 Total Bilirubin 0.30 mg/dL 0.2-1.0 Total Protein 6.9 g/dL 6.4-8.9 CKMB 11/27/2013 N2N/[facility]D Import CKMB ng/mL 1.1 ng/mL 0.6-6.3 CBC Auto Diff 11/27/2013 N2N/[facility]D Import Abs Basophils 0 10^3/uL 0-0.2 Abs Eosinophils 0 10^3/uL 0-0.6 Abs Lymphocytes 2.8 10^3/uL 1.0-4.8 Abs Monocytes 0.5 10^3/uL 0-0.8 Abs Neutrophils 5.0 10^3/uL 1.5-7.7 Abs Nucleated RBC 0.01 10^3/uL Basophil % 0.6 % 0-2 Eosinophil % 0.5 % 0-6 Granulocyte % 59.3 % 38-83 Hematocrit 40 % 35-47 Hemoglobin 13.6 g/dL 12.0-16.0 Lymphocyte % 33.9 % 25-47 Mean Corpuscular HGB Conc 34 g/dL 31-36 Mean Corpuscular Hemoglobin 30 pg 27-31 Mean Corpuscular Volume 89 fL 80-97 Mean Platelet Volume 6 um3 Low 7.4-10.4 Monocyte % 5.7 % 1-9 Nucleated Red Blood Cells % 0.1 Platelet Count 291 10^3/uL 150-450 Red Blood Count 4.47 10^6/uL 4.0-5.4 Red Cell Distribution Width 14 % 10.5-15 White Blood Count 8.4 10^3/uL 4.8-10.8 Laboratory test 11/27/2013 N2N/[facility]D Import B Type Natriuretic 44 pg/mL 33 finding Peptide Creatine Kinase 52 U/L 10-223 D Dimer Quantitative < 200 ng/mL Less Than 230 34 Magnesium 2.1 mg/dL 1.9-2.7 TSH (Thyroid Stimulating Horm) 2.08 IU/mL 0.34-5.60 Troponin I 0.06 ng/mL <0.03 35 Liver Function Tests 08/16/2013 N2N/CCD Import Albumin 4.0 g/dL 3.2-5.2 Albumin/Globulin Ratio 1.8 1-3 Alkaline Phosphatase 76 U/L 34-104 Alt 11 U/L 7-52 Ast 13 U/L 13-39 Direct Bilirubin 0.00 mg/dL Low 0.03-0.18 Globulin 2.2 g/dL 2-4 Indirect Bilirubin (See Note) mg/dL 0.3-1.0 36 Total Bilirubin 0.20 mg/dL 0.2-1.0 Total Protein 6.2 g/dL Low 6.4-8.9 LDL Cholesterol Profile 08/16/2013 N[facility]N/[employer] Import Cholesterol 236 mg/dL 37 HDL Cholesterol 67.6 mg/dL 38 LDL Cholesterol 130 mg/dL 39 Triglycerides 190 mg/dL 40 CBC W/Automated Diff 08/16/2013 N2N/[employer] Import Abs Basophils 0 10^3/uL 0 -0.2 Abs Eosinophils 0.1 10^3/uL 0-0.6 Abs Lymphocytes 2.9 10^3/uL 1.0-4.8 Abs Monocytes 0.7 10^3/uL 0-0.8 Abs Neutrophils 4.3 10^3/uL 1.5-7.7 Abs Nucleated RBC 0 10^3/uL Basophil % 0.5 % 0-2 Eosinophil % 0.8 % 0-6 Granulocyte % 54.2 % 38-83 Hematocrit 35 % 35-47 Hemoglobin 12.1 g/dL 12.0-16.0 Lymphocyte % 36.0 % 25-47 Mean Corpuscular HGB Conc 34 g/dL 31-36 Mean Corpuscular Hemoglobin 30 pg 27-31 Mean Corpuscular Volume 88 fL 80-97 Mean Platelet Volume 7 um3 Low 7.4-10.4 Monocyte % 8.5 % 1-9 Nucleated Red Blood Cells % 0 Platelet Count 277 10^3/uL 150-450 Red Blood Count 3.98 10^6/uL Low 4.0-5.4 Red Cell Distribution Width 13 % 10.5-15 White Blood Count 8.0 10^3/uL 4.8-10.8 Laboratory test 08/16/2013 [employer] Import Creatine Kinase 42 U/L 10-223 finding Liver Function Panel 03/13/2013 [employer] Import Albumin 3.7 g/dL 3.6-5.4 Albumin/Globulin Ratio 1.5 1-3 Alkaline Phosphatase 89 U/L 30-110 Alt 14 U/L 14-54 Ast 16 U/L 12-42 Direct Bilirubin 0.1 mg/dL 0.1-0.5 Globulin 2.4 g/dL 2-4 Indirect Bilirubin 0.6 mg/dL 0.3-1.0 Total Bilirubin 0.7 mg/dL 0.4-1.5 Total Protein 6.1 g/dL Low 6.2-8.1 Vitamin D, 25 03/13/2013 N2N/[facility] Import 25-Hydroxy Vitamin D 24 ng/mL 41 Hydroxy Total 25-Hydroxy Vitamin D2 13 ng/mL 25-Hydroxy Vitamin D3 11 ng/mL Lipid Profile 03/13/2013 N2N/CCD Import Cholesterol 207 mg/dL High Less than (Trig/Chol/HDL) 200 Cholesterol/HDL Ratio 2.5 Average 1-4.44 HDL Cholesterol 83 mg/dL High 40-60 42 LDL Cholesterol 109.4 High Less Than 100 43 Triglycerides 73 mg/dL 40-200 CBC Auto Diff 03/13/2013 N2N/CCD Import Abs Basophils 0 10^3/uL 0-0.2 Abs Eosinophils 0.1 10^3/uL 0-0.6 Abs Lymphocytes 2.3 10^3/uL 1.0-4.8 Abs Monocytes 0.5 10^3/uL 0-0.8 Abs Neutrophils 4.0 10^3/uL 1.5-7.7 Abs Nucleated RBC 0 10^3/uL Basophil % 0.4 % 0-2 Eosinophil % 0.8 % 0-6 Granulocyte % 57.5 % 38-83 Hematocrit 37 % 35-47 Hemoglobin 13.1 g/dL 12.0-16.0 Lymphocyte % 33.5 % 25-47 Mean Corpuscular HGB Conc 35 g/dL 31-36 Mean Corpuscular Hemoglobin 31 pg 27-31 Mean Corpuscular Volume 88 fL 80-97 Mean Platelet Volume 7 um3 Low 7.4-10.4 Monocyte % 7.8 % 1-9 Nucleated Red Blood Cells % 0.1 Platelet Count 254 10^3/uL 150-450 Red Blood Count 4.23 10^6/uL 4.0-5.4 Red Cell Distribution Width 13 % 10.5-15 White Blood Count 7.0 10^3/uL 4.8-10.8 Laboratory test finding 03/13/2013 N2N/CCD Import Creatine Kinase 59 U/L 0-200 TSH (Thyroid Stimulating Horm) 3.86 miu/mL 0.34-5.60 Laboratory test 01/20/2013 N2N/CCD Import Throat Beta Strep (See Note) 44 finding Culture Laboratory test 12/16/2012 N2N/CCD Import Carbamazepine 8.6 ug/mL 4.0- 12.0 finding Lipid Profile 12/16/2012 N2N/CCD Import Cholesterol 258 mg/dL High Less than (Trig/Chol/HDL) 200 Cholesterol/HDL Ratio 3.4 Average 1-4.44 HDL Cholesterol 77 mg/dL High 40-60 45 LDL Cholesterol 162.6 High Less Than 100 46 Triglycerides 92 mg/dL 40-200 Liver Function Panel 12/16/2012 N2N/CCD Import Albumin 3.5 g/dL Low 3.6- 5.4 Albumin/Globulin Ratio 1.6 1-3 Alkaline Phosphatase 76 U/L 30-110 Alt 12 U/L Low 14-54 Ast 14 U/L 12-42 Direct Bilirubin < 0.1 mg/dL Low 0.1-0.5 Globulin 2.2 g/dL 2-4 Indirect Bilirubin (See Note) mg/dL 0.3-1.0 47 Total Bilirubin 0.4 mg/dL 0.4-1.5 Total Protein 5.7 g/dL Low 6.2-8.1 Comp Metabolic Panel 05/03/2012 N2N/CCD Import Albumin 3.6 g/dL 3.6-5.4 Albumin/Globulin Ratio 1.7 1-3 Alkaline Phosphatase 64 U/L 30-110 Alt 22 U/L 14-54 Anion Gap 6.0 mmol/L 2-11 Ast 16 U/L 12-42 BUN/Creatinine Ratio 17.1 8-20 Blood Urea Nitrogen 12 mg/dL 6-24 Calcium 8.8 mg/dL 8.1-9.9 Chloride 109 mmol/L 101-111 Co2 Carbon Dioxide 27.0 mmol/L 22-32 Creatinine 0.70 mg/dL 0.50-1.40 Egfr 117.5 >60 48 Egfr Non- 91.3 >60 Globulin 2.1 g/dL 2-4 Glucose 109 mg/dL High 70-100 Potassium 4.1 mmol/L 3.5-5.0 Sodium 142 mmol/L 133-145 Total Bilirubin 0.3 mg/dL Low 0.4-1.5 Total Protein 5.7 g/dL Low 6.2-8.1 Lipid Profile 05/03/2012 [employer] Import Cholesterol 199 mg/dL Less than (Trig/Chol/HDL) 200 Cholesterol/HDL Ratio 2.7 Average 1-4.44 HDL Cholesterol 73 mg/dL High 40-60 49 LDL Cholesterol 106.0 mg/dL High Less Than 100 50 Triglycerides 100 mg/dL 40-200 Vitamin D, 25 05/03/2012 [employer] Import 25-Hydroxy Vitamin D 43 ng/mL 51 Hydroxy Total 25-Hydroxy Vitamin D2 27 ng/mL 25-Hydroxy Vitamin D3 16 ng/mL Lipid Profile 03/25/2012 [employer] Import Cholesterol 263 mg/dL High Less than (Trig/Chol/HDL) 200 Cholesterol/HDL Ratio 3.5 Average 1-4.44 HDL Cholesterol 76 mg/dL High 40-60 52 LDL Cholesterol 169.0 mg/dL High Less Than 100 53 Triglycerides 90 mg/dL 40-200 Vitamin D, 25 03/25/2012 [employer] Import 25-Hydroxy Vitamin D 19 ng/mL 54 Hydroxy Total 25-Hydroxy Vitamin D2 <4.0 ng/mL 25-Hydroxy Vitamin D3 19 ng/mL Basic Metabolic Panel 12/10/2011 [employer] Import Anion Gap 7.0 mmol/L 2- 11 BUN/Creatinine Ratio 16.3 8-20 Blood Urea Nitrogen 13 mg/dL 6-24 Calcium 9.3 mg/dL 8.1-9.9 Chloride 104 mmol/L 101-111 Co2 Carbon Dioxide 29.0 mmol/L 22-32 Creatinine 0.80 mg/dL 0.50-1.40 Egfr 100.7 >60 55 Egfr Non- 78.3 >60 Glucose 85 mg/dL 70-100 Potassium 4.2 mmol/L 3.5-5.0 Sodium 140 mmol/L 133-145 CBC Auto Diff 12/10/2011 [employer] Import Abs Basophils 0 10^3/uL 0-0.2 Abs Eosinophils 0.1 10^3/uL 0-0.6 Abs Lymphocytes 2.3 10^3/uL 1.0-4.8 Abs Monocytes 0.4 10^3/uL 0-0.8 Abs Neutrophils 2.4 10^3/uL 1.5-7.7 Abs Nucleated RBC 0 10^3/uL Basophil % 0.5 % 0-2 Eosinophil % 1.5 % 0-6 Granulocyte % 45.7 % 38-83 Hematocrit 39 % 35-47 Hemoglobin 13.4 g/dL 12.0-16.0 Lymphocyte % 44.1 % 25-47 Mean Corpuscular HGB Conc 35 g/dL 31-36 Mean Corpuscular Hemoglobin 31 pg 27-31 Mean Corpuscular Volume 90 fL 80-97 Mean Platelet Volume 7 um3 Low 7.4-10.4 Monocyte % 8.2 % 1-9 Nucleated Red Blood Cells % 0 Platelet Count 263 10^3/uL 150-450 Red Blood Count 4.31 10^6/uL 4.0-5.4 Red Cell Distribution Width 13 % 10.5-15 White Blood Count 5.3 10^3/uL 4.8-10.8 Liver Function Panel 12/10/2011 [employer] Import Albumin 3.8 GM/DL 3.6- 5.4 Albumin/Globulin Ratio 1.3 1-3 Alkaline Phosphatase 85 U/L 30-110 Alt 15 U/L 14-54 Ast 16 U/L 12-42 Direct Bilirubin 0.1 mg/dL 0.1-0.5 Globulin 2.9 GM/DL 2-4 Indirect Bilirubin 0.5 mg/dL 0.3-1.0 Total Bilirubin 0.6 mg/dL 0.1-1.0 56 Total Protein 6.7 GM/DL 6.2-8.1 Urinalysis 12/10/2011 [employer] Import Urine Appearance Clear Urine Bilirubin Negative Negative Urine Blood Negative Negative Urine Color Yellow Urine Esterase 2+ Negative Urine Glucose Negative Negative Urine Ketones Negative Negative Urine Nitrate Negative Negative Urine Protein Negative Negative Urine Specific [place] 1.019 1.010-1.030 Urine Urobilinogen Negative Negative Urine pH 6.0 5-9 Urine Microscopic 12/10/2011 [employer] Import Bacteria Urine 1+ None Seen Urine Epithelial Cells 1+ Squamous None Seen Urine RBC 1+ None Seen Urine WBC 2+ None Seen Urine Culture & 12/10/2011 N2N/CCD Import Urine Culture (See Note) 57 Sensitivi Vitamin D, 25 Hydroxy 09/14/2011 [employer] Import 25-Hydroxy Vitamin 28 ng/ mL () 58 D Total 25-Hydroxy Vitamin D2 <4.0 ng/mL () 25-Hydroxy Vitamin D3 28 ng/mL () Lipid Profile 09/14/2011 N2N/CCD Import Cholesterol 245 mg/dL High Less Than 59 (Trig/Chol/HDL) 200 Cholesterol/HDL Ratio 3.22 AVERAGE 1-4.44 High Density Lipoprotein 76 mg/dL High 40-60 60 Low Density Lipoprotein 146 mg/dL High Less Than 100 61 Triglyceride 116 mg/dL 40-200 Comp Metabolic Panel 09/14/2011 N2N/CCD Import Albumin 3.9 GM/DL 3.6- 5.4 Albumin/Globulin Ratio 1.5 1-3 Alkaline Phosphatase 76 U/L 30-110 Alt (SGPT) 17 U/L 14-54 Anion Gap 6.0 mmol/L 2-11 62 Ast (Sgot) 17 U/L 12-42 BUN 13 mg/dL 6-24 BUN/Creatinine Ratio 21.7 High 8-20 Bilirubin Total 0.4 mg/dL 0.4-1.5 63 Calcium 8.9 mg/dL 8.1-9.9 Chloride 102 mmol/L 101-111 Co2 (Carbon Dioxide) 29.0 mmol/L 22-32 Creatinine 0.6 mg/dL 0.50-1.40 Globulin 2.6 GM/DL 2-4 Glucose 88 mg/dL 70-100 One Over Creatinine 1.66 Potassium 4.1 mmol/L 3.5-5.0 Sodium 137 mmol/L 135-145 Total Protein 6.5 GM/DL 6.2-8.1 eGFR 140.3 > 60 64 eGFR Non- 109.1 > 60 CBC Auto Diff 09/14/2011 N2N/CCD Import Abs Basophils 0 0-0.2 Abs Eosinophils 0.1 0-0.6 Abs Lymphs 2.8 1.0-4.8 Abs Mononuclear 0.6 0-0.8 Absolute Neutrophil Count 3.2 1.5-7.7 Basophil % 0.4 % 0-2 Eosinophil % 1.3 % 0-6 Gran % 47.7 % 38-83 Hematocrit 38 % 35-47 Hemoglobin 13.0 g/dL 12.0-16.0 Lymph % 41.8 % 25-47 Mean Corpuscular HGB Cone 34 g/dL 32-36 Mean Corpuscular Hemoglob 31 pg 27-31 Mean Corpuscular Volume 91 um3 79-97 Mean Platelet Volume 6.8 um3 Low 7.4-10.4 Mononuclear % 8.8 % 1-9 Platelet Count 255 CUMM 150-450 Red Cell Count 4.22 CUMM 4.2-5.4 Redcell Distribution WDTH 13 % 10.5-15 White Blood Count 6.6 CUMM 4.8-10.8 Laboratory test 09/14/2011 N2N/CCD Import Hemoglobin A1c 4.9 % Less Than 6.0 65 finding TSH 3.22 MIU/ML 0.34-5.60 Vitamin B12 524 pg/mL 180-914 Laboratory test 10/30/2010 [facility] Cancer 25.2 U/mL 0.0-34.0 [address] Antigen (CA) [place] [address] [phone] CBC/Manual 10/30/2010 [facility] White Blood 7.2 K/uL 3.1-10.[address] Count [place], [place] [id number] [phone] Red Blood Count 4.68 M/uL 3.90-5.40 Hemoglobin 13.5 gm/dL 11.6-15.8 Hematocrit 41.7 % 36.0-46.1 Mean Cell Volume 89.1 fl 80.9-99.0 Mean Corpuscular HGB 28.8 pg 25.9-32.7 Mean Corpuscular HGB Conc 32.4 g/dL 30.8-34.3 Platelet Count 281 K/uL 155-360 Red Cell Distri Width %CV 13.2 % 11.7-14.4 Mean Platelet Volume 9.4 fL 8.9-12.4 Total Cells Counted 100 #CELLS Neutrophils% 55 % 33-73 Lymph% 36 % 17-56 Platelet Estimate NORMAL Band% 2 % 0-8 Monocyte% 6 % 0-10 Eosinophil% 1 % 0-5 RBC Morphology NORMAL Osteoporosis 10/30/2010 [facility] Thyroid Stim 3.17 uIU/mL 0.49-4.67 [address] Hormone [place], [place] [id number] [phone] Calcium 9.1 mg/dL 8.5-10.1 68 Phosphorous 2.8 mg/dL 2.4-4.7 69 Vitamin D,25-Hydroxy 23.9 ng/mL Low 32.0-100.0 70 Creatinine 0.7 mg/dL 0.5-1.4 71 PTH,Intact 41 pg/mL 15-65 72 Laboratory test 10/23/2010 [facility] ThinPrep Pap: See Note 73 finding [address] [place]erv[place] [address] [phone] 1 Because ethnic data is not always readily available, this report includes an eGFR for both -Americans and non- Americans. The National Kidney Disease Education Program (NKDEP) does not endorse the use of the MDRD equation for patients that are not between the ages of 18 and 70, are , have extremes of body size, muscle mass, or nutritional status, or are non- or non-. According to the National Kidney Foundation, irrespective of diagnosis, the stage of the disease is based on the level of kidney function: Stage Description GFR(mL/min/1.73 m(2)) 1 Kidney damage with normal or decreased GFR 90 2 Kidney damage with mild decrease in GFR 60-89 3 Moderate decrease in GFR 30-59 4 Severe decrease in GFR 15-29 5 Kidney failure <15 (or dialysis) 2 Desirable: <150 Borderline High: 150-199 High: 200-499 Very High: >500 3 Desirable: <200 Borderline High: 200-239 High: >239 4 Low: <40 Desirable: 40-60 High: >60 5 Desirable: <100 Near Optimal: 100-129 Borderline High: 130-159 High: 160-189 Very High: >189 6 J02.9 R53.83 7 Please Note: A POSITIVE result for influenza A and/or B antigen does not rule out a co-infection with other pathogens or identify any specific influenza A virus subtype. A NEGATIVE result for influenza A and/or B antigen does not preclude influenza virus infection and should not be the sole basis for treatment or other management decisions, since the antigen present in the specimen may be below the detection limit of the test. A NEGATIVE result is PRESUMPTIVE and it is recommended these results be confirmed by virus culture or an FDA-cleared influenza A and B molecular assay. Method: Reimageitor Chromatographic immunoassay 8 NORMAL THROAT EMRE 9 N39.0 10 10,000 - 50,000 CFU/mL 11 J02.9 12 NORMAL THROAT EMRE 13 Nurse Transitional: [id number] 14 E55.9 E66.9 15 Vitamin D deficiency has been defined by the [place] and an Endocrine Society practice guideline as a level of serum 25-OH vitamin D less than 20 ng/mL (1,2). The Endocrine Society went on to further define vitamin D insufficiency as a level between 21 and 29 ng/mL (2). 1. IOM ([employer] of [employer]). 2010. Dietary reference intakes for calcium and D. [place]: The National Academies Press. 2. Lucian Cooley, Chel ISRAEL, et al. Evaluation, treatment, and prevention of vitamin D deficiency: an Endocrine Society clinical practice guideline. JCEM. 2010; 96(7):1911-. Performed at: - [facility] [address] [id number] Sewing Machine Maintenance Mechanic: Kina Marie MD, Phone: [phone] 16 Note: Persistent reduction for 3 months or more in an eGFR <60 mL/min/1.73 m2 defines CKD. Patients with eGFR values >/=60 mL/min/1.73 m2 may also have CKD if evidence of persistent proteinuria is present. The original MDRD equation for estimated GFR is not valid for patients less than 18 years of age. Additional information may be found at www.kdoqi.org. 17 Values below the stated reference ranges of AST and ALT can be seen in normal populations. Clinical correlation is suggested. 18 G35 19 Vitamin D deficiency has been defined by the [employer] and an Endocrine Society practice guideline as a level of serum 25-OH vitamin D less than 20 ng/mL (1,2). The Endocrine Society went on to further define vitamin D insufficiency as a level between 21 and 29 ng/mL (2). 1. IOM ([employer]). 2010. Dietary reference intakes for calcium and D. [place]: The National Academies Press. 2. Lucian Cooley, Chel ISRAEL et al. Evaluation, treatment, and prevention of vitamin D deficiency: an Endocrine Society clinical practice guideline. JCEM. 2010; 96(7):1911-30. Performed at: RN - [facility] [address] [id number] Sewing Machine Maintenance Mechanic: Kina Marie MD, Phone: [phone] 20 Vitamin D deficiency has been defined by the [employer] and an Endocrine Society practice guideline as a level of serum 25-OH vitamin D less than 20 ng/mL (1,2). The Endocrine Society went on to further define vitamin D insufficiency as a level between 21 and 29 ng/mL (2). 1. IOM ([employer] of [employer]). 2010. Dietary reference intakes for calcium and D. [place]: The National Academies Press. 2. Pauline MF, Lucian NOBLE, Chel ISRAEL, et al. Evaluation, treatment, and prevention of vitamin D deficiency: an Endocrine Society clinical practice guideline. JCEM. 2010; 96(7):1911-30. Performed at: RN - [facility] [address] [id number] Sewing Machine Maintenance Mechanic: Kina Marie MD, Phone: [phone] 21 Note: Persistent reduction for 3 months or more in an eGFR <60 mL/min/1.73 m2 defines CKD. Patients with eGFR values >/=60 mL/min/1.73 m2 may also have CKD if evidence of persistent proteinuria is present. The original MDRD equation for estimated GFR is not valid for patients less than 18 years of age. Additional information may be found at www.kdoqi.org. 22 Values below the stated reference ranges of AST and ALT can be seen in normal populations. Clinical correlation is suggested. 23 QUERY: DATE AND TIME OF LAST TEGRETOL DOSE? 24 SEE RESULT BELOW Name: MAICOL VALENTINE : [address]: Janes العلي MD Acct: [id number] Unit: [id number] AGE: 44 Location: [facility] Re10/09/14 SEX: F Status: DEP ER SPEC: [id number] CINDY: 10/09/14-[address] [facility] [address]: Janes العلي MD REQ: [id number] RECD: 10/09/14 STATUS: AMANDO HERNANDEZ DR: Serge Palmer MD _ SOURCE: THROAT SPDESC: ORDERED: Throat Beta Str Procedure Result Verified Site Throat Beta Strep Culture Final 10/11/14- 819 ML Negative For Group A Beta Streptococcus * ML - MAIN LAB ([facility]) . END OF REPORT * ML=Testing performed at Main Lab DEPARTMENT OF PATHOLOGY, [address] [place] [address] Christopher Baez M.D. Director [facility] # [id number] 25 Desirable <200 Borderline high 200-239 High >239 26 Low <40 Desirable: 40-60 High: >60 27 Desirable: <100 mg/dL Near Optimal: 100-129 mg/dL Borderline High: 130-159 mg/dL High: 160-189 mg/dL Very High: >189 mg/dL 28 Desirable <150 Borderline high 150-199 High 200-499 Very High >500 29 Unable to calculate Ind Bili as D Bili is <0.1 30 REFERENCE VALUE 25-HYDROXY D TOTAL (D2+D3) Optimum levels in the healthy population are 20-50, patients with bone disease may benefit from higher levels within this range. Test Performed by: [place] [address] Mortgage Accounting Clerk: Jose Vaca II, M.D., Ph.D. 31 Organism 1 ! URETHRAL EMRE Quantity ! 50,000 - 100,000 CFU/mL 32 Because ethnic data is not always readily available, this report includes an eGFR for both -Americans and non- Americans. The National Kidney Disease Education Program (NKDEP) does not endorse the use of the MDRD equation for patients that are not between the ages of 18 and 70, are , have extremes of body size, muscle mass, or nutritional status, or are non- or non-. According to the National Kidney Foundation, irrespective of diagnosis, the stage of the disease is based on the level of kidney function: Stage Description GFR(mL/min/1.73 m(2)) 1 Kidney damage with normal or decreased GFR 90 2 Kidney damage with mild decrease in GFR 60- 89 3 Moderate decrease in GFR 30-59 4 Severe decrease in GFR 15-29 5 Kidney failure <15 (or dialysis) 33 >100 to <200 pg/mL: likely compensated congestive heart failure (CHF) 200 to 400 pg/mL: likely moderate CHF >400 pg/mL: likely moderate to severe CHF [place] [facility] 34 Please note: The following may produce a false positive D Dimer test: - Rheumatoid factor greater than 60 IU/ml - Plasma hemoglobin greater than 0.05 gm/dl - Bilirubin greater than 50 mg/dl - Lipids greater than 1000 mg/dl - FDP greater than 20 ug/ml 35 Reference Range and Interpretation: TnI (ng/mL) Interpretation Less Than 0.03 ng/mL Not supportive of diagnosis of [place] 0.03 - 0.50 ng/mL Indeterminate: suggest serial studies if clinically indicated. Greater than 0.5 ng/mL Consistent with diagnosis of [place] 36 Unable to calculate Ind Bili as D Bili is <0.1 37 Desirable <200 Borderline high 200-239 High >239 38 Low <40 Desirable: 40-60 High: >60 39 Desirable <100 Near Optimal 100-129 Borderline high 130-159 High 160-189 Very High >189 40 Desirable <150 Borderline high 150-199 High 200-499 Very High >500 41 -- REFERENCE VALUE -- 25-HYDROXY D TOTAL (D2+D3) Optimum levels in the healthy population are 20-50, patients with bone disease may benefit from higher levels within this range. Test Performed by: [facility] - [address] [address] Mortgage Accounting Clerk: Dallas Rodriguez III, M.D. 42 HDL Interpretation: Undesirable: High Risk: Less than 40 mg/dL Desirable: Low Risk: Greater than 60 mg/dL 43 LDL Interpretation: Low Risk Optimal Level: LDL Less than 100 mg/dL Near or Above Optimal: LDL 100-129 mg/dL Borderline High Risk: LDL 130-159 mg/dL High Risk : LDL 160-189 mg/dL Very High Risk: LDL Greater than 189 mg/dL 44 RUN DATE: 01/27/13 [facility] LAB LIVE PAGE 1 RUN TIME: [address] [place] [id number] Specimen Inquiry ----- Name: MAICOL VALENTINE : [address]: Leonor Villanueva NP Acct: [id number] Unit: [id number] AGE: 42 Location: [facility] Re01/20/13 SEX: F Status: REG REF ----- SPEC: [id number] CINDY: 01/20/13-[address]: Leonor Villanueva NP REQ: [id number] RECD: 01/20/13-1300 STATUS: COMP _ SOURCE: THROAT SPDESC: ORDERED: Throat Beta Str QUERIES: Medent Number [id number] ----- Procedure Result Verified Site ----- Throat Beta Strep Culture Final 01/27/13-175 ML Organism 1 Negative Group A Strep ----- END OF REPORT * ML=Testing performed at Main Lab DEPARTMENT OF PATHOLOGY, [address] [place] [address] Christopher Baez M.D. Director [facility] Permit # [id number] 45 HDL Interpretation: Undesirable: High Risk: Less than 40 mg/dL Desirable: Low Risk: Greater than 60 mg/dL 46 LDL Interpretation: Low Risk Optimal Level: LDL Less than 100 mg/dL Near or Above Optimal: LDL 100-129 mg/dL Borderline High Risk: LDL 130-159 mg/dL High Risk : LDL 160-189 mg/dL Very High Risk: LDL Greater than 189 mg/dL 47 Unable to calculate Ind Bili as D Bili is <0.1 Unable to calculate Ind Bili as D Bili is <0.1 48 Because ethnic data is not always readily available, this report includes an eGFR for both -Americans and non- Americans. The National Kidney Disease Education Program (NKDEP) does not endorse the use of the MDRD equation for patients that are not between the ages of 18 and 70, are , have extremes of body size, muscle mass, or nutritional status, or are non- or non-. According to the National Kidney Foundation, irrespective of diagnosis, the stage of the disease is based on the level of kidney function: Stage Description GFR(mL/min/1.73 m(2)) 1 Kidney damage with normal or decreased GFR 90 2 Kidney damage with mild decrease in GFR 60- 89 3 Moderate decrease in GFR 30-59 4 Severe decrease in GFR 15-29 5 Kidney failure <15 (or dialysis) 49 HDL Interpretation: Undesirable: High Risk: Less than 40 MG/DL Desirable: Low Risk: Greater than 60 MG/DL 50 LDL Interpretation: Low Risk Optimal Level: LDL Less than 100 MG/DL Near or Above Optimal: LDL 100-129 MG/DL Borderline High Risk: LDL 130-159 MG/DL High Risk : LDL 160-189 MG/DL Very High Risk: LDL Greater than 189 MG/DL 51 -- REFERENCE VALUE -- 25-HYDROXY D TOTAL (D2+D3) Optimum levels in the normal population are 25-80 Test Performed by: [address] [id number] Mortgage Accounting Clerk: Dallas Rodriguez III, M.D. 52 HDL Interpretation: Undesirable: High Risk: Less than 40 MG/DL Desirable: Low Risk: Greater than 60 MG/DL 53 LDL Interpretation: Low Risk Optimal Level: LDL Less than 100 MG/DL Near or Above Optimal: LDL 100-129 MG/DL Borderline High Risk: LDL 130-159 MG/DL High Risk : LDL 160-189 MG/DL Very High Risk: LDL Greater than 189 MG/DL 54 Interpretation: 10-24 (mild to moderate deficiency) -- REFERENCE VALUE -- 25-HYDROXY D TOTAL (D2+D3) Optimum levels in the normal population are 25-80 Test Performed by: [address] [address] Mortgage Accounting Clerk: Dallas Rodriguez III, M.D. 55 Because ethnic data is not always readily available, this report includes an eGFR for both -Americans and non- Americans. The National Kidney Disease Education Program (NKDEP) does not endorse the use of the MDRD equation for patients that are not between the ages of 18 and 70, are , have extremes of body size, muscle mass, or nutritional status, or are non- or non-. According to the National Kidney Foundation, irrespective of diagnosis, the stage of the disease is based on the level of kidney function: Stage Description GFR(mL/min/1.73 m(2)) 1 Kidney damage with normal or decreased GFR 90 2 Kidney damage with mild decrease in GFR 60- 89 3 Moderate decrease in GFR 30-59 4 Severe decrease in GFR 15-29 5 Kidney failure <15 (or dialysis) 56 A metabolite of Naproxen, O-desmethylnaproxen, has been shown to interfere with the [place] method for measuring total bilirubin. Samples from patients who have taken Naproxen have shown spurious elevation in total bilirubin levels. 57 RUN DATE: 12/13/11 [facility] LAB LIVE PAGE 1 RUN TIME: [address] [place] [id number] Specimen Inquiry ----- Name: MAICOL VALENTINE : [address]: Kj Giles Acct: [id number] Unit: [id number] AGE: 41 Location: [facility] Re12/10/11 SEX: F Status: REG REF ----- SPEC: [id number] CINDY: 12/10/[address]: Kj Giles REQ: [id number] RECD: 12/10/11 STATUS: COMP _ SOURCE: URINE SPDESC: ORDERED: Urine Culture QUERIES: Urine Source: Random ----- Procedure Result Verified Site ----- Urine Culture Final 12/13/11-1000 ML Organism 1 NORMAL EMRE [place] Count >100,000 (Many) CFU/ML ----- END OF REPORT * ML=Testing performed at Main Lab DEPARTMENT OF PATHOLOGY, [address] [place] [address] Christopher Baez M.D. Director [facility] Permit # [id number] 58 -- REFERENCE VALUE -- 25-HYDROXY D TOTAL (D2+D3) Optimum levels in the normal population are 25-80 Test Performed by: [address] [address] Mortgage Accounting Clerk: Dallas Rodriguez III, M.D. 59 CHOLESTEROL INTERPRETATION: Desirable: Less than 200 MG/DL Borderline-High Risk: 200-239 MG/DL High-Risk: 240 MG/DL and over 60 HDL INTERPRETATION: Undesirable: High Risk: Less than 40 MG/DL Desirable: Low Risk: Greater than 60 MG/DL 61 LDL INTERPRETATION: Low Risk Optimal Level: LDL Less than 100 MG/DL Near or Above Optimal: LDL 100-129 MG/DL Borderline High Risk: LDL 130-159 MG/DL High Risk : LDL 160-189 MG/DL Very High Risk: LDL Greater than 189 MG/DL 62 Anion gap measurement may be of limited value in the presence of any alkalosis, especially in a combined acid base disorder. . 63 A metabolite of Naproxen, O-desmethylnaproxen, has been shown to interfere with the [place] method for measuring total bilirubin. Samples from patients who have taken Naproxen have shown spurious elevation in total bilirubin levels. 64 Because ethnic data is not always readily available, this report includes an eGFR for both -Americans and non- Americans. The National Kidney Disease Education Program (NKDEP) does not endorse the use of the MDRD equation for patients that are not between the ages of 18 and 70, are , have extremes of body size, muscle mass, or nutritional status, or are non- or non-. According to the National Kidney Foundation, irrespective of diagnosis, the stage of the disease is based on the level of kidney function: Stage Description GFR(mL/min/1.73 m(2)) 1 Kidney damage with normal or decreased GFR 90 2 Kidney damage with mild decrease in GFR 60- 89 3 Moderate decrease in GFR 30-59 4 Severe decrease in GFR 15-29 5 Kidney failure <15 (or dialysis) 65 THERAPEUTIC TARGET FOR THE TREATMENT OF DIABETES MELLITUS PATIENTS IS <7% HBA1C, AND IN SELECTIVE PATIENTS <6.0%. PLEASE REFER TO [employer] DIABETIC CARE GUIDELINES FOR FURTHER INFORMATION. 66 Ximena ECLIA methodology Values obtained with different assay methods or kits cannot be used interchangeably. Results cannot be interpreted as absolute evidence of the presence or absence of malignant disease. Performed at: [address] [id number] Sewing Machine Maintenance Mechanic: Kin Christiansen MD, Phone: [phone] QUERY: @Fanatic[employer] Pat ID: QUERY: @[facility] Req #: 68 QUERY: @EMR Pat ID: QUERY: @EMR Req #: 69 QUERY: @EMR Pat ID: QUERY: @EMR Req #: 70 Recent studies consider the lower limit of 32.0 ng/mL to be a threshold for optimal health. Davidson RODRIGUEZ. J Nutr. 2004;135(2):317-22. Performed at: [address] [id number] Sewing Machine Maintenance Mechanic: Kin Christiansen MD, Phone: [phone] QUERY: @[employer] Pat ID: QUERY: @[email or web address] Req #: [phone] Performed at: [address] [id number] Sewing Machine Maintenance Mechanic: Kin Christiansen MD, Phone: [phone] PAP: FINAL REPORT SPECIMEN ADEQUACY: SPECIMEN SATISFACTORY FOR INTERPRETATION INTERPRETATION: NEGATIVE FOR INTRAEPITHELIAL LESION OR MALIGNANCY COMMENT: BENIGN CELLULAR CHANGES ASSOCIATED WITH INFLAMMATION MODERATE INFLAMMATION THINPREP PREPARED PAP SLIDE # Prepared in the Cytology laboratory from the ThinPrep sample is 1 ThinPrep smear. 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 Post ? Menopause? LMP date: 09/19/10 Post Hysterectomy? Is cervix present? Y If patient had related surgical procedure: Related Therapy: Significant Clinical History: V72.31 DISCLAIMER: The Pap smear is a screening test and not a diagnostic procedure. False negative and false positive results can and do occur for a number of reasons. Regular screening provides an aid in detecting treatable cervical abnormalities, but should not be used as the only means for detecting cervical dysplasia and carcinoma. 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, 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 R53.83 Other fatigue Office Visit 12/14/2017 1:00p Primary Care Estefany M79.604 Pain in right Office Magi Sarkar leg Z23 Encounter for immunization Office Visit 07/12/2017 9:00a Primary Care Farhan, N39.0 Urinary tract Office Anjelica, RPAC infection, site not specified Office Visit 05/31/2017 10:00a Primary Care Anais Minaya, J02.9 Acute pharyngitis, Office MD unspecified H92.01 Otalgia, right ear Office Visit 05/04/2017 10:00a Primary Care Estefany, J01.00 Acute maxillary Office Magi Sarkar sinusitis, unspecified Office Visit 12/28/2016 1:30p Primary Care Farhan, E78.5 Hyperlipidemia, Office Anjelica, RPAC unspecified G35 Multiple sclerosis Office Visit 05/27/2016 11:00a Primary Care Farhan, G35 Multiple Office Anjelica, RPAC sclerosis E66.9 Obesity, unspecified Office Visit 09/24/2015 2:30p Primary Care Farhan, G35 Multiple Office Anjelica, RPAC sclerosis E55.9 Vitamin D deficiency, unspecified Office Visit 02/25/2015 1:30p Primary Care Farhan, J06.9 Acute upper Office Anjelica, RPAC respiratory infection, unspecified Office Visit 02/15/2015 9:00a Primary Care Farhan, E78.5 Hyperlipidemia, Office Anjelica, RPAC unspecified Z23 Encounter for immunization G35 Multiple sclerosis E55.9 Vitamin D deficiency, unspecified Office Visit 11/13/2010 4: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 Examination 627.2 Menopausal Or Female Climacteric State, Symptomatic 626.2 Menstruation Excessive Or Frequent Plan of Treatment 03/24/2018 - Anjelica Real, RPACD64.9 Anemia, unspecifiedNew Labs:CBC W/ Automated Diff, Scheduled: 06/06/18Iron-Tibc-%Sat, Scheduled: 06/06/18Ferritin, Scheduled: 06/06/18Comments:Add Multivit with iron dailyRepeat labs in 3 wngadiL88.9 Vitamin D deficiency, unspecifiedNew Labs:Vitamin D,25-Hydroxy, Scheduled: 06/06/18Comments:Suggest trial of Vit D3 4000 IU daily as substitute for prescription (ergocalciferol D2)AllNew Medication:Vitamin D3 Super Strength 2000 Unit - 2 tabs daily...substituted for D2 03/2018
[2018-04-02 10:35] VITALS: BP 108/64
--- NOTE | 2018-04-02 11:18 | UC ---
Throat Pain/Nasal John Paul HPI - HPI Summary HPI Summary: left sided maxillary sinus pressure, tooth pain and eye pain, left ear feels full too. - History of Current Complaint Chief Complaint: UCRespiratory Stated Complaint: SINUS COMPLAINT Time Seen by Provider: 04/02/18 11:01 Hx Obtained From: Patient Hx Last Menstrual Period: 03/14/18 ?: No Onset/Duration: Sudden Onset, Lasting Days Severity: Moderate Pain Intensity: 5 Associated Signs & Symptoms: Positive: Sinus Discomfort, Nasal Discharge - Allergies/Home Medications Allergies/Adverse Reactions: Allergies Allergy/AdvReac Type Severity Reaction Status Date / Time oxycodone [From Percocet] Allergy Hives Verified 04/02/18 10:29 Home Medications: Home Medications D-Methorphan/PE/Acetaminophen [Daytime Cold Multi-Symp Gelcap] 2 each PO ONCE PRN 04/02/18 [History Confirmed 04/02/18] PMH/Surg Hx/FS Hx/Imm Hx Previously Healthy: Yes - Surgical History Surgical History: Yes Surgery Procedure, Year, and Place: , 1989, [facility] - Family History Known Family History: Positive: Hypertension, Other - longevity in family. Grandparents living, all well. - Social History Alcohol Use: None Substance Use Type: None Smoking Status (MU): Never Smoked Tobacco - Immunization History Most Recent Influenza Vaccination: 2012 Most Recent Tetanus Shot: 2011 Most Recent Pneumonia Vaccination: never Review of Systems All Other Systems Reviewed And Are Negative: Yes Constitutional: Positive: Negative Skin: Positive: Negative Eyes: Positive: Negative ENT: Positive: Sore Throat, Ear Ache, Nasal Discharge, Sinus Congestion, Sinus Pain/Tenderness Respiratory: Positive: Cough Cardiovascular: Positive: Negative Gastrointestinal: Positive: Negative Genitourinary: Positive: Negative Motor: Positive: Negative Neurovascular: Positive: Negative Musculoskeletal: Positive: Negative Neurological: Positive: Negative Psychological: Positive: Negative Is Patient Immunocompromised?: No Physical Exam Triage Information Reviewed: Yes Appearance: Well-Nourished, Ill-Appearing, Pain Distress Vital Signs: Initial Vital Signs Temp 96.9 F 04/02/18 10:31 Pulse 93 04/02/18 10:31 Resp 17 04/02/18 10:31 BP 108/64 04/02/18 10:31 Pulse Ox 99 04/02/18 10:31 Vital Signs Reviewed: Yes Eye Exam: Normal ENT: Positive: Pharyngeal erythema, Nasal congestion, TM bulging - left, Sinus tenderness Dental Exam: Normal Neck exam: Normal Respiratory Exam: Normal Respiratory: Positive: Chest non-tender, Lungs clear, Normal breath sounds Cardiovascular Exam: Normal Cardiovascular: Positive: RRR, No Murmur, Pulses Normal Abdominal Exam: Normal Musculoskeletal Exam: Normal Neurological Exam: Normal Psychological Exam: Normal Skin Exam: Normal Throat Pain/Nasal Course/Dx - Course Course Of Treatment: hx obtained, exam performed ,meds reviewed, treated for left sinusitis - Differential Dx/Diagnosis Differential Diagnosis/HQI/PQRI: Influenza, Otitis Media, Pharyngitis, Sinusitis , URI Provider Diagnosis: Left maxillary sinusitis Discharge - Sign-Out/Discharge Documenting (check all that apply): Patient Departure All imaging exams completed and their final reports reviewed: No Studies - Discharge Plan Condition: Stable Disposition: HOME Prescriptions: Cephalexin CAP* [Keflex CAP*] 500 mg PO BID #20 cap Patient Education Materials: Sinusitis (ED) Referrals: Anjelica Real PA [Primary Care Provider] - Additional Instructions: 1. take the medication as prescribed. 2. Increasd fluid intake and get rest 3. FLonase Over the counter, daily can help as well. - Billing Disposition and Condition Condition: STABLE Disposition: Home
== END 2018-04-02 11:22 | disposition home or self-care (01) ==
LOC: UCCORT 10:11
DX: J32.0 Chronic maxillary sinusitis (principal); K08.89 Other specified disorders of teeth and supporting structures; H57.10 Ocular pain, unspecified eye; J02.9 Acute pharyngitis, unspecified; Z88.5 Allergy status to narcotic agent
CPT/HCPCS: 99212; G0463